=== PATIENT | female | born 1985 | race American Indian/Alaskan Native ===

== ENCOUNTER 2020-03-30 12:22 | Emergency (ER) | payer BC ==
[2020-03-30 12:38] VITALS: BP 120/80
--- NOTE | 2020-03-30 13:09 | Emergency Department Report ---
Suture/Staple Removal - HPI Chief Complaint: Laceration/Recheck/Suture Stated Complaint: STITCHES REMOVED Time Seen by Provider: 03/30/20 12:58 When Sutures or [place] Placed: 5-7 Days Ago Wound Location: Right little finger, volar ED Review of Systems ROS: Stated complaint: STITCHES REMOVED Other details as noted in HPI Constitutional: denies: chills, fever, malaise Musculoskeletal: denies: joint swelling, arthralgia Skin: denies: rash, lesions, change in color ED Past Medical Hx - Past Medical History Previous Medical History?: No - Surgical History Past Surgical History?: No - Social History Smoking Status: Never Smoker Substance Use Type: None - Medications Home Medications: Home Medications Medication Instructions Recorded Confirmed Last Taken Type Chlorhexidine Gluconate 5 ml TP TID #240 liquid 03/24/20 Unknown Rx [Antiseptic Skin Cleanser] cephALEXin [Keflex] 500 mg PO Q6HR #40 capsule 03/24/20 Unknown Rx Suture Removal Exam - Exam General: Vital signs noted. No distress. Alert and acting appropriately. Wound: No Pathologic Erythema, No Tenderness, No Drainage, No Pus, No Wound Dehiscence Other Systems: All other systems reviewed and are unremarkable. [address] and anterior portion of right little finger. No surrounding erythema, drainage, or tenderness noted. Patient has full range of motion and normal perfusion of the right little finger. ED Course Vital Signs 03/30/20 12:36 Temperature 98.4 F Pulse Rate 72 Respiratory 16 Rate Blood Pressure 120/80 O2 Sat by Pulse 100 Oximetry ED Recheck MDM - Differential Diagnosis Suture/Staple Removal - Medical Decision Making Patient presents for suture removal. Sutures were placed 03/24/2020 here in ED. Patient states she did complete her antibiotics and denies any increased pain, drainage, redness, or other concerns. No signs of infection are noted on exam. 5 sutures were removed without difficulty. Patient has normal sensation, perfusion, and range of motion of the finger. Patient's vitals are stable and she is well-appearing and stable for discharge home. Primary care follow-up recommended as needed. Critical care attestation.: If time is entered above; I have spent that time in minutes in the direct care of this critically ill patient, excluding procedure time. ED Disposition Clinical Impression: Visit for suture removal Disposition: DC-01 TO HOME OR SELFCARE Is pt being admited?: No Condition: Stable Instructions: Suture Removal (ED) Referrals: PRIMARY CARE, [Referring] - as needed
== END 2020-03-30 13:23 | disposition home or self-care (01) ==
LOC: ED 12:22
DX: S61.216A Laceration without foreign body of right little finger without damage to nail, initial encounter (principal); Z48.02 Encounter for removal of sutures; X58.XXXA Exposure to other specified factors, initial encounter; Y93.89 Activity, other specified; Y92.89 Other specified places as the place of occurrence of the external cause; Y99.8 Other external cause status